=== PATIENT | male | born 1970 | race Two or more races ===

== ENCOUNTER → 2021-10-22 | Emergency (ER) | payer MEDICAID ==
[~2021-10-22] VITALS: Ht 170.2 cm; Wt 80.7 kg
[2021-10-22 13:21] VITALS: BP 94/62
== END | disposition left against medical advice (07) ==
LOC: EDBD 13:21 → ER 13:21
DX: R07.89 Other chest pain (principal); Z53.21 Procedure and treatment not carried out due to patient leaving prior to being seen by health care provider
CPT/HCPCS: 93005